=== PATIENT | male | born 1945 | race Caucasian/White ===

== ENCOUNTER → 2018-04-25 | Outpatient (CLI) | payer MEDICARE, OTHER ==
[~2018-04-25] MED LIST: CHANTIX PO; LEVAQUIN500 MG PO; MUCINEX PO; TYLENOL WITH C1 EACH PO; [UNRECOGNIZED DRUG - CODE] PO; [UNRECOGNIZED DRUG - OTHER] PO
--- NOTE | 2018-04-25 16:40 | Diagnostic Imaging Report ---
EXAMINATION: Right upper quadrant ultrasound CLINICAL INDICATION: Nonalcoholic steatohepatitis COMPARISON: MRI abdomen 04/22/2014 DISCUSSION: Transverse and longitudinal images of the right upper quadrant were obtained. The liver is normal in size measuring 14.2centimeters in length in the right midclavicular line and patchy heterogeneous echotexture with areas of perivascular hyperechogenicity. Ovoid anechoic structure with posterior acoustic enhancement and no internal vascularity, solid component, or septation measures 5.2 x 3.2 x 6.5 cm in the right lobe of the liver. There is no intrahepatic biliary dilatation. The common bile duct measures 0.4 cm in caliber. The main portal vein is normal in caliber and measures 0.7 cm with normal hepatopetal flow. The gallbladder is absent. The pancreas is poorly visualized secondary to overlying bowel gas. The right kidney measures 12.1 centimeters in length. There is normal renal cortical echogenicity and no hydronephrosis, mass or shadowing calculi. The great vessels are poorly visualized. No free fluid is seen. IMPRESSION: Patchy hepatic steatosis. Simple right hepatic cyst. Status post cholecystectomy. Signed by: Dr. Rayshawn Mathis M.D. on 04/25/2018 4:36 PM
== END ==
LOC: US 13:31
PROVIDERS: ATTEND Internal Medicine Gastroenterology
DX: K75.81 Nonalcoholic steatohepatitis (NASH) (principal)
CPT/HCPCS: 76705

== ENCOUNTER → 2018-05-01 | Day surgery (SDC) | payer MEDICARE, OTHER ==
[~2018-05-01] MED LIST changes: +COMBIVENT RESPIM4 GM IH; +FENTANYL CITRATE/PF 100MCG/2 ML INJ ONE; +MIDAZOLAM HCL 2 MG/2 ML VIAL ONE; +PROPOFOL IV EMULSION 10 MG/ML 50 ML VIAL ONE
--- OUTSIDE RECORDS SUMMARY | 2018-05-01 06:25 | XMS REPORT ---
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 Allergies, Adverse Reactions, Alerts This patient has no known allergies or adverse reactions. Medications This patient has no known medications. Results Test Description Test Time Test Comments Text Results Atomic Results Result Comments LIVER 2018-04-25 16:33:00 [place] [address] Patient Name: MOIZ TOTH MR #: [id number] : 1945 Age/Sex: 73/M Req #: [id number] [facility] Physician: Ordered by: ETHEL CLARK MD Report #: [id number] Location: Room/Bed: Procedure: [id number] US/US LIVER Exam Date: 04/25/18 Exam Time: 1418 REPORT STATUS: Signed EXAMINATION: Right upper quadrant ultrasound CLINICAL INDICATION: Nonalcoholic steatohepatitis COMPARISON: MRI abdomen 04/22/2014 DISCUSSION: Transverse and longitudinal images of the right upper quadrant were obtained. The liver is normal in size measuring 14.2centimeters in length in the right midclavicular line and patchy heterogeneous echotexture with areas of perivascular hyperechogenicity. Ovoid anechoic structure with posterior acoustic enhancement and no internal vascularity, solid component, or septation measures 5.2 x 3.2 x 6.5 cm in the right lobe of the liver. There is no intrahepatic biliary dilatation. The com mon bile duct measures 0.4 cm in caliber. The main portal vein is normal in caliber and measures 0.7 cm with normal hepatopetal flow. The gallbladder is absent. The pancreas is poorly visualized secondary to overlying bowel gas. The right kidney measures 12.1 centimeters in length. There is normal renal cortical echogenicity and no hydronephrosis, mass or shadowing calculi. The great vessels are poorly visualized. No free fluid is seen. IMPRESSION: Patchy hepatic steatosis. Simple right hepatic cyst. Status post cholecystectomy. Signed by: Dr. Susie Cuba M.D. on 04/25/2018 4:36 PM Dictated By: SUSIE CUBA MD [id number] Transcribed By: LARRY on 04/25/18 3103 COPY TO: ETHEL CLARK MD
[2018-05-01 10:25] VITALS: BP 148/97
--- NOTE | 2018-05-01 13:43 | Operative Report ---
DATE OF PROCEDURE: May 01, 2018 REFERRING PHYSICIAN: Dr. Brien Clark PROCEDURE PERFORMED: Colonoscopy and polypectomy. INDICATIONS FOR COLONOSCOPY: Surveillance colonoscopy, personal history of colon polyps. MEDICATION: Patient was done under MAC. Please see anesthesiologist's note. PROCEDURE: With the patient in the left lateral decubitus position, the flexible fiberoptic Olympus colonoscope was inserted into the rectum with ease and advanced all the way to the cecum. There were some retained stools in the colon but visualization was fair. An approximately 5-mm sessile polyp was noted in the cecum. That was removed per snare electrocautery, and the polypectomy site was hemoclipped. The scope was then withdrawn slowly. Whatever was visualized of the mucosa overlying the ascending, transverse, and descending grossly appeared to be within normal limits. Minimal diverticulosis was noted in the sigmoid colon. Three minute polyps were hot biopsied from the rectum. The scope was then retroflexed into the distal rectum, and small internal hemorrhoids were noted, none of which was actively bleeding. The scope was then straightened out. It was subsequently withdrawn. Patient tolerated the procedure well. IMPRESSION 1. Cecal polyp, snared. Polypectomy site hemoclipped. 2. Diverticulosis, minimal. 3. Rectal polyps x3, hot biopsied. 4. Internal hemorrhoids, none actively bleeding. PLAN: Follow up histology. Initiate high-fiber, low-fat diet. Initiate high-fiber supplement. Patient might benefit from a followup colonoscopy in 3 years. Job#: [id number] cc:BRIEN CLARK MD
== END | disposition home or self-care (01) ==
LOC: ENDO 06:21
PROVIDERS: ATTEND Internal Medicine Gastroenterology
DX: Z12.11 Encounter for screening for malignant neoplasm of colon (principal); D12.0 Benign neoplasm of cecum; K62.1 Rectal polyp; K57.30 Diverticulosis of large intestine without perforation or abscess without bleeding; K64.8 Other hemorrhoids; K75.81 Nonalcoholic steatohepatitis (NASH); J44.9 Chronic obstructive pulmonary disease, unspecified; R19.7 Diarrhea, unspecified; Z90.49 Acquired absence of other specified parts of digestive tract; G47.33 Obstructive sleep apnea (adult) (pediatric); Z01.810 Encounter for preprocedural cardiovascular examination; Z87.891 Personal history of nicotine dependence
CPT/HCPCS: 45384; 45385; 88305; 93005; J2250; J2704; 45378

== ENCOUNTER → 2021-05-12 | Day surgery (SDC) | payer MEDICARE, OTHER ==
[~2021-05-12] MED LIST changes: -FENTANYL CITRATE/PF 100MCG/2 ML INJ ONE; +LIDOCAINE HCL 2% LOCAL INJ 5 ML SDV VIAL INJ ONE; -MIDAZOLAM HCL 2 MG/2 ML VIAL ONE; +MUCINEX600 MG PO; +MULTI-VITAMIN1 EACH PO; +PROPOFOL IV EMULSION 10 MG/ML 20 ML VIAL ONE; -PROPOFOL IV EMULSION 10 MG/ML 50 ML VIAL ONE
[2021-05-12 09:55] VITALS: BP 124/70
== END | disposition home or self-care (01) ==
LOC: OR 08:23
PROVIDERS: ATTEND Internal Medicine Gastroenterology
DX: Z09 Encounter for follow-up examination after completed treatment for conditions other than malignant neoplasm (principal); K63.5 Polyp of colon; K62.1 Rectal polyp; K57.30 Diverticulosis of large intestine without perforation or abscess without bleeding; R19.7 Diarrhea, unspecified; K64.8 Other hemorrhoids; K76.0 Fatty (change of) liver, not elsewhere classified; J44.9 Chronic obstructive pulmonary disease, unspecified; R03.0 Elevated blood-pressure reading, without diagnosis of hypertension; R73.03 Prediabetes; E78.00 Pure hypercholesterolemia, unspecified; F17.210 Nicotine dependence, cigarettes, uncomplicated; Z88.0 Allergy status to penicillin; Z01.810 Encounter for preprocedural cardiovascular examination; Z01.812 Encounter for preprocedural laboratory examination; Z20.822 Contact with and (suspected) exposure to COVID-19; Z99.81 Dependence on supplemental oxygen; Z79.899 Other long term (current) drug therapy; Z80.0 Family history of malignant neoplasm of digestive organs
CPT/HCPCS: 45384; 45385; 88305; 93005; J2001; J2704; U0002; 45378

== ENCOUNTER → 2022-06-16 | Outpatient (CLI) | payer MEDICARE, OTHER ==
[~2022-06-16] MED LIST changes: -LIDOCAINE HCL 2% LOCAL INJ 5 ML SDV VIAL INJ ONE; -PROPOFOL IV EMULSION 10 MG/ML 20 ML VIAL ONE
== END ==
LOC: CT 09:28
PROVIDERS: ATTEND Internal Medicine
DX: R06.09 Other forms of dyspnea (principal)
CPT/HCPCS: 71250

== ENCOUNTER → 2024-05-21 | Day surgery (SDC) | payer MEDICARE, OTHER ==
[2024-05-19 09:25] LABS: BASOPHILS # (AUTO) 0.1 (0.0-0.1); BASOPHILS % 0.9 % (0.0-1.0); EOSINOPHILS # (AUTO) 0.2 (0.0-0.4); EOSINOPHILS % 2.7 % (0.0-6.0); HEMATOCRIT 56.8 % (38.2-49.6); HEMOGLOBIN 18.6 g/dL (14.0-18.0); LYMPHOCYTES # (AUTO) 1.7 (1.0-3.2); LYMPHOCYTES % 25.1 % (18.0-39.1); MEAN CORPUSCULAR HEMOGLOBIN 31.5 pg (28-32); MEAN CORPUSCULAR HGB CONC 32.7 g/dL (31-35); MEAN CORPUSCULAR VOLUME 96.3 fL (81-99); MONOCYTES # (AUTO) 0.7 (0.2-0.8); MONOCYTES % 10.9 % (4.4-11.3); NEUTROPHILS # (AUTO) 4.1 (2.1-6.9); NEUTROPHILS % 60.1 % (38.7-80.0); PLATELET COUNT 253 x10e3/uL (140-360); RED CELL DISTRIBUTION WIDTH 14.3 % (11.7-14.4); WHITE BLOOD COUNT 6.78 x10e3/uL (4.8-10.8)
[2024-05-19 10:01] LABS: ANION GAP 13.8 mmol/L (8-16); CALCIUM 10.1 mg/dL (8.4-10.2); CREATININE, SERUM 0.85 mg/dL (0.72-1.25); POTASSIUM 4.8 mmol/L (3.5-5.1)
[~2024-05-21] MED LIST changes: +LIDOCAINE HCL 2% LOCAL INJ 5 ML SDV VIAL INJ ONE; +PROCTOSOL-HC28.35 GM PR; +PROPOFOL IV EMULSION 10 MG/ML 20 ML VIAL ONE; +TRELEGY ELLIPT1 EACH INH; +VITAMIN D PO
[2024-05-21] MEDS: LACTATED RINGER'S 1,000 ML ONE (09:52)
[2024-05-21 11:06] VITALS: TEMP 97
[2024-05-21 11:35] VITALS: BP 124/84; PULSE 79; RESP 12; O2SAT 97
== END | disposition home or self-care (01) ==
LOC: OR 07:43
PROVIDERS: ATTEND Ophthalmology
DX: D23.112 Other benign neoplasm of skin of right lower eyelid, including canthus (principal); J44.9 Chronic obstructive pulmonary disease, unspecified; R73.03 Prediabetes; K75.9 Inflammatory liver disease, unspecified; K76.0 Fatty (change of) liver, not elsewhere classified; Z88.0 Allergy status to penicillin; Z99.81 Dependence on supplemental oxygen; Z79.899 Other long term (current) drug therapy
CPT/HCPCS: 36415; 67961; 80048; 85025; 88305; 93005; J2003; J2704; J7121

== ENCOUNTER → 2024-08-04 | Outpatient (REF) | payer MEDICARE, OTHER ==
[~2024-08-04] MED LIST changes: -LIDOCAINE HCL 2% LOCAL INJ 5 ML SDV VIAL INJ ONE; -PROPOFOL IV EMULSION 10 MG/ML 20 ML VIAL ONE
== END ==
LOC: CT 07:20
PROVIDERS: ATTEND Internal Medicine
DX: R06.09 Other forms of dyspnea (principal)
CPT/HCPCS: 71250